=== PATIENT | male | born 1970 | race Caucasian/White ===

== ENCOUNTER 2023-07-22 05:47 | Emergency (ER) | payer SELFPAY ==
[2023-07-22 05:49] VITALS: BP 152/94
--- NOTE | 2023-07-22 06:15 | ED.GENMED ---
History of Present Illness
General
Chief Complaint: Back Pain
Time Seen by Provider: 07/22/23 06:07
Travel History
Have you had any contact with someone who has COVID-19?: No
Do you have any symptoms of coronavirus? Fever > 100 degrees, chills, cough, shortness of breath, sore throat, loss of taste or smell, muscle aches, or headache?: No
History of Present Illness
History of Present Illness:
HPI: Patient presents with back pain. This started after he strained his back moving large appliances at work 3 days ago. He went to [facility] at that time. He states they placed him on Flexeril and lidocaine however insurance would not
cover these medications. He could barely get out of bed today. He called a neighbor to help and then he drove himself here. He has no lower extremity neurologic dysfunction. He has no bowel or bladder incontinence or retention.
EXAM:
GENERAL: Well appearing but appears in moderate distress
HEENT: Moist oral mucosa
BACK: There is no midline T or L-spine tenderness, there is marked tenderness along the left paraspinal lower thoracic/upper lumbar paraspinal musculature
ABDOMEN: Soft with no peritoneal signs, no tenderness
NEUROLOGIC: Excellent strength all extremities, no coordination deficits
PSYCHIATRIC: Appropriate mental status, normal insight and judgement
EXTREMITIES: Nontender, no edema, moves all extremities equally
SKIN: No rash, no lesions
TIME OF INITIAL ENCOUNTER: 6:20 AM
NUMBER AND COMPLEXITY OF PROBLEMS ADDRESSED AT THE ENCOUNTER
� Chronic conditions affecting care: Chronic back pain and neck pain, history of alcohol abuse
� Acute Exacerbation and/or Progression of Chronic Illness: This is an acute exacerbation of a chronic problem
� Differential Diagnosis includes: Muscle strain, no clinical evidence/suspicion for fracture or cauda equina syndrome
AMOUNT AND/OR COMPLEXITY OF DATA TO BE REVIEWED AND ANALYZED
� I performed an independent evaluation of and my interpretation is:
EKG:
CT:
X-rays:
Laboratory Studies:
Other:
� Review of other/old records: I reviewed MRI report from 2017 that showed a small left paracentral protrusion at T12/L1 along with mild to moderate right-sided foraminal stenosis at L4-5
� Clinical information was obtained by an independent historian: None needed
� Prescriptions/Medications Considered but not given:
� Further testing considered but not performed: Considered imaging however the patient has no back pain red flags to warrant emergent imaging at this time
RISK OF COMPLICATIONS AND/OR MORBIDITY OR MORTALITY OF PATIENT MANAGEMENT
� Social determinants of health affecting care: Lives at home
� Discussion with other providers:
� Escalation of care including admission/observation vs risk of discharge considered: The patient has no back pain 'red flags'. He appears rather uncomfortable�will give IM Toradol and start steroids. Also plan very short
course of narcotic analgesia he is to follow-up with PMD. On reassessment at 7 AM, the patient still room to be in pain however he has an unchanged neurologic examination. Will give very short course of narcotic analgesia and steroids.
Past History
Past History
ED Past Medical History: HTN and Other (RA, alcoholism, Degenerative disc disease, Cellulits, )
ED Past Surgical History: Other (Patient had surgery on his back, early April 15)
Social History
Tobacco: Non-smoker
Alcohol: Chronic alcoholic
Drug: None
Personal: Single
Living: with family
Employment: Not employed
Family History
Family History: Other (Arthritis)
Phy Exam
Physical Exam
Physical Exam:
See HPI
Course
Orders/Labs/Results
Orders:
Orders
07/22/23 06:23
Ketorolac [Toradol] 30 mg IM NOW STA
Prednisone [Deltasone] 50 mg PO NOW STA
Vital Signs
Initial and Last Documented VS:
Initial Vital Signs
Temp Pulse Resp BP Pulse Ox
97.8 F 83 18 152/94 98
07/22/23 05:49 07/22/23 05:49 07/22/23 05:49 07/22/23 05:49 07/22/23 05:49
Last Documented Vital Signs
Temp Pulse Resp BP Pulse Ox
97.8 F 83 18 135/92 98
07/22/23 05:49 07/22/23 05:49 07/22/23 05:49 07/22/23 06:16 07/22/23 05:49
*Critical Care Note
Total Time (30-74mins, 75-104mins- exclusive of procedures): Not Applicable
ED Attending Note
-
Portions of this chart may have been created with voice recognition software.� Occasional wrong word or��sound alike� substitutions may have occurred due to the inherent limitations of voice recognition software.
Discharge Plan
Departure
Patient Disposition: Home (Routine Discharge)
Date of Disposition: 07/22/23
Time of Disposition: 07:03
Patient with high blood pressure during this ER visit?: Yes
Discharge Problem:
Back pain
Instructions: Low Back Pain (DC), BLOOD PRESSURE
Prescriptions:
New
prednisone 50 mg tablet
50 mg PO DAILY Qty: 4 0RF
oxycodone-acetaminophen [Percocet] 5-325 mg tablet
1 - 2 tab PO Q6HPRN PRN (Reason: pain) Qty: 14 0RF
No Action
ibuprofen 800 mg Tablet
800 mg PO Q8HPRN PRN (Reason: mod pain)
prednisone 5 mg Tablet
5 mg PO DAILY
therapeutic multivitamin Tablet
1 tab PO DAILY
methotrexate sodium 2.5 mg Tablet
25 mg PO TH
Hold Instructions: Resume on 11/18/22. Resume only after discussing with your piano stringer
folic acid 1 mg Tablet
1 mg PO DAILY
amoxicillin-pot clavulanate 875-125 mg Tablet
1 tab PO Q12 Qty: 14 0RF
docusate sodium 100 mg Capsule
100 mg PO BID Qty: 30 0RF
polyethylene glycol 3350 [HealthyLax] 17 gram Powder In Packet
17 g PO DAILY Qty: 100 0RF
pantoprazole 40 mg Tablet,Delayed Release (Dr/Ec)
40 mg PO DAILY Qty: 30 0RF
sennosides [Senna Laxative] 8.6 mg Tablet
8.6 mg PO BID Qty: 30 0RF
oxycodone 5 mg tablet
5 mg PO Q8H PRN (Reason: severe pain) Qty: 4 0RF
Referrals:
Artur Newton MD [Family Provider] -
Activity Restrictions/Additional Instructions:
Follow-up with your primary care doctor. Return here if worse. You could also try deel-vun-kohyujp lidocaine patches. If you take Percocet for pain, I recommend you try something like MiraLAX to help manage constipation. Next dose of steroids
tomorrow morning.
Interventions
Interventions:
*Risk Screen - Suicide Last Done: 07/22/23 05:49
*General Assessment Last Done: 07/22/23 05:49
*Neglect/Abuse Screening Last Done: 07/22/23 05:49
ED- Fall Risk Assessment Last Done: 07/22/23 06:26
*ED COVID-19 Vaccine History Last Done: 07/22/23 06:25
ED-Musculoskeletal Assessment Last Done: 07/22/23 06:26
Discharge Date and Time
Print Language: UZBEK
[2023-07-22 06:16] VITALS: BP 135/92
[2023-07-22 06:24] VITALS: BMI 27.8
[2023-07-22] MEDS: DELTASONE 50 MG PO (06:33)
[2023-07-22] MEDS: TORADOL 30 MG IM (06:33)
--- NOTE | 2023-07-22 07:59 | EDRN ---
Reviewed discharge instructions with patient. Verbalized understanding. Ambulated with steady gait to the lobby.
[2023-07-22 08:00] VITALS: BP 142/94
== END 2023-07-22 08:01 | disposition home or self-care (01) ==
LOC: EMR 05:47
PROVIDERS: EMERGENCY PHYSICIAN Emergency Medicine; FAMILY PHYSICIAN Family Medicine
DX: M54.9 Dorsalgia, unspecified (principal); X50.0XXA Overexertion from strenuous movement or load, initial encounter; Y93.89 Activity, other specified; Y92.89 Other specified places as the place of occurrence of the external cause; Y99.0 Civilian activity done for income or pay; I10 Essential (primary) hypertension; M06.9 Rheumatoid arthritis, unspecified; M51.35 Other intervertebral disc degeneration, thoracolumbar region; F10.21 Alcohol dependence, in remission
CPT/HCPCS: 99284; 96372

== ENCOUNTER → 2023-07-22 16:03 | Outpatient (REF) | payer OTHER, SELFPAY | LOC: RAD 16:03 | PROVIDERS: ATTENDING PHYSICIAN Nurse Practitioner Family | DX: M54.6 Pain in thoracic spine (principal); G89.29 Other chronic pain; M54.50 Low back pain, unspecified; M54.16 Radiculopathy, lumbar region | CPT/HCPCS: 72072; 72110 ==

== ENCOUNTER → 2023-08-02 13:08 | Outpatient (REF) | payer OTHER, SELFPAY | LOC: HWRAD 13:08 | PROVIDERS: ATTENDING PHYSICIAN Nurse Practitioner Family | DX: K40.90 Unilateral inguinal hernia, without obstruction or gangrene, not specified as recurrent (principal) | CPT/HCPCS: 74177; Q9967 ==

== ENCOUNTER 2023-08-25 05:14 | Emergency (ER) | payer OTHER, SELFPAY ==
[2023-08-25 05:22] VITALS: BP 162/106
[2023-08-25 05:33] VITALS: BMI 27.4
[2023-08-25 05:51] LABS: % Basophils 0.6 % (0-2); % Eosinophils 2.1 % (0-6); % Immature Granulocytes 0.1 % (0-0.5); % Lymphocytes 37.4 % (20.5-51.1); % Monocytes 6.8 % (1.7-9.3); Absolute Eosinophils 0.1 10^3/uL (0-0.7); Absolute Lymphocytes 2.5 10^3/uL (1.2-3.4); Absolute Monocytes 0.5 10^3/uL (0.1-0.6); Absolute Neutrophils 3.6 10^3/uL (1.4-6.5); Hematocrit 41.9 % (39.0-52.0); Hemoglobin 15.2 g/dL (13.0-18.0); Mean Corp Hgb Conc. 36.3 g/dL (33.0-37.0); Mean Corpuscular Hgb 32.1 pg (27.0-31.0); Mean Corpuscular Volume 88.4 fL (80.0-94.0); Mean Platelet Volume 9.3 fL (7.4-10.4); Nucleated Red Blood Cells % 0 % (-); Platelet Count 312 10^3/uL (130-400); Red Blood Cell Count 4.74 10^6/uL (4.70-6.10); Red Cell Dist. Width 11.4 % (11.5-14.5); White Blood Cell Count 6.8 10^3/uL (4.8-10.8)
[2023-08-25 06:08] LABS: ALT (SGPT) 34 U/L (0-50); AST (SGOT) 31 U/L (17-59); Albumin 4.8 g/dl (3.5-5.0); Alkaline Phosphatase 58 U/L (38-126); Blood Urea Nitrogen 15 mg/dl (9-20); Calcium 9.6 mg/dl (8.4-10.2); Carbon Dioxide 24 mmol/L (22-30); Chloride 103 mmol/L (98-107); Estimated Creatinine Clearance 112 ml/min; Glucose 163 mg/dl (70-99); Potassium 4.3 mmol/L (3.5-5.1); Sodium 139 mmol/L (135-145); Total Bilirubin 0.8 mg/dl (0.2-1.3); Total Protein 6.9 g/dl (6.3-8.2); eGFR > 60.00
--- NOTE | 2023-08-25 06:58 | ED.GENMED ---
History of Present Illness
General
Chief Complaint: Back Pain
Source: patient
Time Seen by Provider: 08/25/23 06:45
History of Present Illness
History of Present Illness:
52-year-old male presents to the emergency room complaining of low back pain. Patient has been having back pain issues intermittently for years. About a month ago he states he felt something go in his back while moving an oven at work. He has
been seeing his primary care provider for this and was actually referred to orthopedics/spine surgery. He actually had an appointment today but states he could not go to that appointment because his pain was too severe. The pain was preventing him
from getting up and going to the bathroom. No fever or chills. Pain exists in the back. No lower extremity weakness. Patient had an MRI performed yesterday at [facility] here at [place].
Past History
Past History
ED Past Medical History: HTN and Other (RA, alcoholism, Degenerative disc disease, Cellulits, )
ED Past Surgical History: Other (Patient had surgery on his back, early April 15)
Social History
Tobacco: Non-smoker
Alcohol: Chronic alcoholic
Drug: None
Personal: Single
Living: with family
Employment: Not employed
Family History
Family History: Other (Arthritis)
Phy Exam
Physical Exam
Physical Exam:
General: Awake, Alert, Oriented X3. Appears uncomfortable
Vitals: unremarkable
Head: Atraumatic
Eyes: Pupils equal, EOMI
Throat: Airway intact, no exudates
Neck: Trachea midline
Lungs: Clear and equal b/l
Heart: Regular rate, no murmurs
Abd: Soft, Nontender, No pulsatile mass
Back: Tenderness palpation left paraspinal musculature
Neuro: No focal weakness, sensation intact
Skin: Warm, dry, no rash
Extremities: pulses equal b/l, no edema
Course
Orders/Labs/Results
Orders:
Orders
08/25/23 05:34
Complete Blood Count/With Diff Urgent
Comprehensive Metabolic Panel Urgent
08/25/23 06:56
Ketorolac [Toradol] 30 mg IV NOW STA
08/25/23 06:58
Diazepam [Valium] 5 mg PO NOW STA
08/25/23 07:17
Urinalysis Reflex To Culture Urgent
Date Specimen was Collected: 08/25/23
Time Specimen was Collected: 07:16
Abnormal Lab Results
08/25/23
05:34
MCH 32.1 H pg
(27.0-31.0)
RDW 11.4 L %
(11.5-14.5)
Glucose 163 H mg/dl
(70-99)
08/25/23 05:34
08/25/23 05:34
Vital Signs
Initial and Last Documented VS:
Initial Vital Signs
Temp Pulse Resp BP Pulse Ox
98.1 F 94 20 162/106 99
08/25/23 05:22 08/25/23 05:22 08/25/23 05:22 08/25/23 05:22 08/25/23 05:22
Last Documented Vital Signs
Temp Pulse Resp BP Pulse Ox
98.1 F 89 16 141/94 98
08/25/23 05:22 08/25/23 08:18 08/25/23 08:18 08/25/23 08:18 08/25/23 08:18
MDM/Problems Addressed
Differential Diagnosis Includes:
low back strain, kidney stone, radiculopathy
MDM/Problems Addressed:
Pt presents with exacerbation of low back pain. No fever. No ivda. Pt had a MRI yesterday which I was able to obtain the report for.....there disc disease and herniation of L1 to the left with foramen narrowing. Will discharge with prescription
for steroids, few Valium and pt will go to ortho. appt.
*Critical Care Note
Total Time (30-74mins, 75-104mins- exclusive of procedures): Not Applicable
ED Attending Note
-
Portions of this chart may have been created with voice recognition software.� Occasional wrong word or��sound alike� substitutions may have occurred due to the inherent limitations of voice recognition software.
Discharge Plan
Departure
Patient Disposition: Home (Routine Discharge)
Date of Disposition: 08/25/23
Time of Disposition: 08:17
Patient with high blood pressure during this ER visit?: Yes
Condition: Good
Discharge Problem:
Back pain
Instructions: Low Back Pain (DC)
Prescriptions:
New
methylprednisolone [Medrol (Lamine)] 4 mg tablets,dose pack
See Rx Instructions .ROUTE .COMPLEX Qty: 21 0RF
Rx Instructions:
orally per package directions
diazepam [Valium] 5 mg tablet
5 mg PO TID PRN (Reason: muscle spasm) Qty: 12 0RF
No Action
ibuprofen 800 mg Tablet
800 mg PO Q8HPRN PRN (Reason: mod pain)
prednisone 5 mg Tablet
5 mg PO DAILY
therapeutic multivitamin Tablet
1 tab PO DAILY
methotrexate sodium 2.5 mg Tablet
25 mg PO TH
Hold Instructions: Resume on 11/18/22. Resume only after discussing with your boulevard glassware replacer
folic acid 1 mg Tablet
1 mg PO DAILY
amoxicillin-pot clavulanate 875-125 mg Tablet
1 tab PO Q12 Qty: 14 0RF
docusate sodium 100 mg Capsule
100 mg PO BID Qty: 30 0RF
polyethylene glycol 3350 [HealthyLax] 17 gram Powder In Packet
17 g PO DAILY Qty: 100 0RF
pantoprazole 40 mg Tablet,Delayed Release (Dr/Ec)
40 mg PO DAILY Qty: 30 0RF
sennosides [Senna Laxative] 8.6 mg Tablet
8.6 mg PO BID Qty: 30 0RF
oxycodone 5 mg tablet
5 mg PO Q8H PRN (Reason: severe pain) Qty: 4 0RF
prednisone 50 mg tablet
50 mg PO DAILY Qty: 4 0RF
oxycodone-acetaminophen [Percocet] 5-325 mg tablet
1 - 2 tab PO Q6HPRN PRN (Reason: pain) Qty: 14 0RF
Referrals:
Artur Newton MD [Family Provider] -
Activity Restrictions/Additional Instructions:
Please follow up with ortho as scheduled.
Interventions
Interventions:
*Risk Screen - Suicide Last Done: 08/25/23 05:22
*General Assessment Last Done: 08/25/23 05:22
*Neglect/Abuse Screening Last Done: 08/25/23 05:22
ED- Fall Risk Assessment Last Done: 08/25/23 05:22
*ED COVID-19 Vaccine History Last Done: 08/25/23 05:22
*Nursing Disposition Last Done: 08/25/23 08:27
UU-Ltvkhv-Ckjbyumuwl Assessment Last Done: 08/25/23 05:46
ED-Musculoskeletal Assessment Last Done: 08/25/23 05:46
Discharge Date and Time
Discharge Date/Time: 08/25/23 08:28
Print Language: CROATIAN
[2023-08-25] MEDS: VALIUM 5 MG PO (07:14)
[2023-08-25] MEDS: TORADOL 30 MG IV (07:14)
[2023-08-25 08:02] LABS: Urine Albumin Negative (Neg - Trace); Urine Bilirubin Negative (Negative); Urine Character Clear (Clear); Urine Color Yellow; Urine Glucose Negative (Negative); Urine Ketone Negative (Negative); Urine Leukocyte Negative (Negative); Urine Nitrite Negative (Negative); Urine Occult Blood Negative (Negative); Urine Specific Gravity 1.015 (<1.030); Urine Urobilinogen Negative (Neg - 1+)
[2023-08-25 08:18] VITALS: BP 141/94
== END 2023-08-25 08:28 | disposition home or self-care (01) ==
LOC: EMR 05:14
PROVIDERS: Emergency Medicine; EMERGENCY PHYSICIAN Emergency Medicine; FAMILY PHYSICIAN Family Medicine
DX: M54.50 Low back pain, unspecified (principal); I10 Essential (primary) hypertension
CPT/HCPCS: 99284; 96374; 80053; 81003; 85025

== ENCOUNTER 2023-08-27 02:45 | Emergency (ER) | payer OTHER, SELFPAY ==
[2023-08-27 02:48] VITALS: BP 166/105
[2023-08-27 03:00] VITALS: BP 146/90
[2023-08-27 03:12] VITALS: BMI 27.6
[2023-08-27] MEDS: TORADOL 30 MG IV (03:14)
[2023-08-27] MEDS: NSS 1000 IV (03:15)
[2023-08-27 03:46] LABS: Alcohol 96 mg/dl; Blood Urea Nitrogen 17 mg/dl (9-20); Calcium 9.8 mg/dl (8.4-10.2); Carbon Dioxide 23 mmol/L (22-30); Chloride 106 mmol/L (98-107); Estimated Creatinine Clearance 100 ml/min; Glucose 154 mg/dl (70-99); Potassium 4.8 mmol/L (3.5-5.1); Sodium 142 mmol/L (135-145); eGFR > 60.00
[2023-08-27 04:08] VITALS: BP 158/92
--- NOTE | 2023-08-27 05:58 | ED.GENMED ---
History of Present Illness
General
Chief Complaint: Abdominal Pain
Source: patient, previous radiology exam (CT abdomen pelvis August 01 showing bilateral nonobstructive kidney stones. Bilateral inguinal hernias containing fat. Lumbar DJD.) and previous hospital records (Several ED visits for similar complaint most
recently July 22, 2023 and just 2 days ago August 24 with complaints of persistent low back pain.)
Exam Limitations: none
Time Seen by Provider: 08/27/23 03:01
Nursing documentation reviewed up to this point in time: agreed with
History of Present Illness
History of Present Illness:
This is a 52-year-old gentleman who has history of chronic low back pain, lumbar DJD who complains of persistent low back pain after lifting injury early July. Evaluated in this ED July 21 and then again 2 days ago August 24 with complaints of
persistent low back pain radiating to his left lower quadrant, left groin region. He has been following with his primary care physician and underwent MRI of the lumbar spine 3 days ago showing disc disease and herniation of L1 to the left with
foramen narrowing. He had an appointment with orthospine on the but missed that appointment and instead came to the ED for evaluation of his low back pain. Unremarkable laboratory studies as well as urinalysis, was given IV Toradol and Valium
p.o. and was discharged to home with patient states he woke up with severe prescription for Medrol Dosepak as well as a few Valium.
Left lower quadrant pain, left groin pain, concerned for exacerbation of his hernia, he also complains of significant ongoing low back pain.
He has rescheduled his appointment with orthospine for this August 31.
He denies fall, no difficulty moving his bowels or bladder. No fever nor chills. No history of IV drug use.
Records reveal outpatient CT of the abdomen pelvis August 01. Performed due to complaints of left lower quadrant pain, left groin pain. CAT scan shows bilateral nonobstructive kidney stones, bilateral inguinal hernias containing fat.
Patient admits that pain is worse with movement but he is unsure if pain feels similar to his ongoing low back pain. He took a Percocet prior to arrival without relief.
He has driven himself to the ED.
Upon review of PDMP. Patient has been prescribed multiple narcotic medications from several different providers over the past month. He has been prescribed several small prescription for tramadol by [facility] orthopedist Lesly Jeffries MD.
Past History
Past History
ED Past Medical History: HTN and Other (RA, alcoholism, Degenerative disc disease, Cellulits, chronic low back pain/lumbar DJD)
ED Past Surgical History: Other (Patient had surgery on his back, early April 2018)
Social History
Tobacco: Non-smoker
Alcohol: Chronic alcoholic
Drug: None
Personal: Single
Living: with family
Employment: Employed
Family History
Family History: Other (Arthritis)
Phy Exam
Physical Exam
Physical Exam:
GENERAL: 52-year-old gentleman appears his stated age, moderately anxious, moaning in pain, mildly restless. Moderately hypertensive, mildly tachycardic. Afebrile.
EYE: pupils equal and reactive. anicteric
NECK: Supple, nontender, no meningismus, no significant adenopathy.
ENT: posterior pharynx is clear, oral mucosa is moist. No rhinorrhea.
CARDIAC: Regular rhythm, tachycardic at 120. no murmur.
LUNGS: Clear breath sounds bilaterally, no acute respiratory distress, no wheezes/rales/rhonchi
ABDOMEN: Soft, nondistended, mild tenderness palpation left inguinal region without palpable mass, no rash, no r/g, no cvat. normoactive BS.
BACK: Mild paralumbar tenderness to palpation. No midline bony tenderness.
NEUROLOGICAL: Alert and oriented x3, no focal neuro deficits. Gait is steady.
SKIN: Warm and dry, normal color, skin intact. No rash.
MUSCULOSKELETAL: No C/C/E. peripheral pulses are full and equal b/l. No palpable tenderness.
PSYCH: Mildly anxious. Intermittently demanding.
Course
Orders/Labs/Results
Orders:
Orders
08/27/23 03:11
0.9% Sodium Chloride 1000 ml [Nss] 1,000 ml IV BOLUS
Ketorolac [Toradol] 30 mg .ROUTE .STK-MED ONE
08/27/23 03:12
Ketorolac [Toradol] 30 mg IV NOW STA
08/27/23 03:13
CT Abd/pel Without Iv Or Oral Urgent
Comment:
Reason For Exam: severe LLQ to L groin pain
08/27/23 03:20
Alcohol Urgent
Basic Metabolic Panel Urgent
08/27/23 04:45
Lidocaine 2% Mpf [Xylocaine Mpf 2%] 145 mg 0.9% Sodium Chloride 100 ml [Nss] 100 ml IV NOW
Abnormal Lab Results
08/27/23
03:20
Glucose 154 H mg/dl
(70-99)
08/27/23 03:20
Vital Signs
Initial and Last Documented VS:
Initial Vital Signs
Temp Pulse Resp BP Pulse Ox
98 F 139 28 166/105 97
08/27/23 02:48 08/27/23 02:48 08/27/23 02:48 08/27/23 02:48 08/27/23 02:48
Last Documented Vital Signs
Temp Pulse Resp BP Pulse Ox
98 F 122 14 158/92 94
08/27/23 02:48 08/27/23 03:15 08/27/23 03:15 08/27/23 04:08 08/27/23 04:15
MDM/Problems Addressed
Differential Diagnosis Includes:
Concern for acute on chronic low back pain with sciatica to the left as cause for his left lower quadrant and left groin pain. Other consideration is renal colic/left ureteric stone. There is no palpable mass, no palpable hernia.
Will repeat BMP, urinalysis. Unremarkable laboratory studies just 2 days ago.
Will check CT abdomen pelvis to assess for potential ureteric stone, occult hernia.
Will medicate for pain with IV Toradol.
No red flags in history or exam. No saddle anesthesia, no neurologic deficits, no difficulty moving bowels or bladder.
No recent surgical procedures, no history of IV drug use, no history of diabetes thus no risk factors for infectious process/epidural abscess and reassuring that patient underwent MRI just 3 days ago.
Chronic conditions affecting care: Other (Chronic low back pain/lumbar DJD)
*Radiology
Radiology exam reviewed: radiology read reviewed
*Pulse Oximetry
Patient hypoxic: no
*Critical Care Note
Total Time (30-74mins, 75-104mins- exclusive of procedures): Not Applicable
comment:
08/27/2023 0615 AM
Update Note
Update Note:
08/27/2023 04:35 AM
CAT scan shows intrarenal stones but no evidence of ureteric stone nor hydronephrosis.
Mildly prominent fluid-filled loops of jejunum in the left mid abdomen which may represent a mild enteritis versus peristalsis artifact. There is no bowel obstruction. No acute abnormality.
Multilevel DJD in the lumbar spine and mild T12 wedge deformity.
I suspect patient's left groin pain, low back pain is ongoing issue related to his lumbar DJD for which he is already following with orthopedics.
Lengthy discussion with patient regarding our narcotic responsible policy and as such we will avoid further narcotics and will trial a dose of IV lidocaine.
If this is ineffective we could trial IV ketamine.
Chemistries are again unremarkable save for mildly elevated glucose of 154. Patient currently prescribed an oral steroid.
08/27/2023 05:01 AM
Prior to receiving IV lidocaine patient has become quite angry, argumentative, yelling obscenities and has decided to leave the ED.
He has pulled out his IV and has ambulated with a whittington steady unaided gait out of the exam room down the [place] to the waiting room.
I do not doubt that the patient is in pain but I have significant concern for an element of opioid seeking behavior.
ED Attending Note
-
Portions of this chart may have been created with voice recognition software.� Occasional wrong word or��sound alike� substitutions may have occurred due to the inherent limitations of voice recognition software.
Discharge Plan
Departure
Patient Disposition: Against Medical Advice
Condition: Good
Discharge Problem:
Acute exacerbation of chronic low back pain, opioid seeking behavior
Prescriptions:
No Action
ibuprofen 800 mg Tablet
800 mg PO Q8HPRN PRN (Reason: mod pain)
prednisone 5 mg Tablet
5 mg PO DAILY
therapeutic multivitamin Tablet
1 tab PO DAILY
methotrexate sodium 2.5 mg Tablet
25 mg PO TH
Hold Instructions: Resume on 11/18/22. Resume only after discussing with your leaf sticker
folic acid 1 mg Tablet
1 mg PO DAILY
amoxicillin-pot clavulanate 875-125 mg Tablet
1 tab PO Q12 Qty: 14 0RF
docusate sodium 100 mg Capsule
100 mg PO BID Qty: 30 0RF
polyethylene glycol 3350 [HealthyLax] 17 gram Powder In Packet
17 g PO DAILY Qty: 100 0RF
pantoprazole 40 mg Tablet,Delayed Release (Dr/Ec)
40 mg PO DAILY Qty: 30 0RF
sennosides [Senna Laxative] 8.6 mg Tablet
8.6 mg PO BID Qty: 30 0RF
oxycodone 5 mg tablet
5 mg PO Q8H PRN (Reason: severe pain) Qty: 4 0RF
prednisone 50 mg tablet
50 mg PO DAILY Qty: 4 0RF
oxycodone-acetaminophen [Percocet] 5-325 mg tablet
1 - 2 tab PO Q6HPRN PRN (Reason: pain) Qty: 14 0RF
methylprednisolone [Medrol (Lamine)] 4 mg tablets,dose pack
See Rx Instructions .ROUTE .COMPLEX Qty: 21 0RF
Rx Instructions:
orally per package directions
diazepam [Valium] 5 mg tablet
5 mg PO TID PRN (Reason: muscle spasm) Qty: 12 0RF
Referrals:
Artur Newton MD [Family Provider] -
Interventions
Interventions:
*Risk Screen - Suicide Last Done: 08/27/23 02:48
*General Assessment Last Done: 08/27/23 02:48
*Neglect/Abuse Screening Last Done: 08/27/23 02:48
ED- Fall Risk Assessment Last Done: 08/27/23 03:12
*Nursing Disposition Last Done: 08/27/23 05:05
KJ-Uioyrs-Vbxsbsyyfc Assessment Last Done: 08/27/23 03:12
Discharge Date and Time
Discharge Date/Time: 08/27/23 05:06
Print Language: ARABIC
== END 2023-08-27 05:06 | disposition left against medical advice (07) ==
LOC: EMR 02:45
PROVIDERS: EMERGENCY PHYSICIAN Emergency Medicine; FAMILY PHYSICIAN Family Medicine
DX: M54.50 Low back pain, unspecified (principal); R10.32 Left lower quadrant pain; N20.0 Calculus of kidney; Z76.5 Malingerer [conscious simulation]; Z53.29 Procedure and treatment not carried out because of patient's decision for other reasons; K40.20 Bilateral inguinal hernia, without obstruction or gangrene, not specified as recurrent; M47.816 Spondylosis without myelopathy or radiculopathy, lumbar region; G89.29 Other chronic pain; I10 Essential (primary) hypertension; M06.9 Rheumatoid arthritis, unspecified; M51.36 Other intervertebral disc degeneration, lumbar region; F10.20 Alcohol dependence, uncomplicated
CPT/HCPCS: 99284; 96374; 96361; 74176; 80048; 82077

== ENCOUNTER 2023-09-19 22:06 | Inpatient (IN) | payer OTHER, SELFPAY ==
[2023-09-19] VITALS (13 sets, daily range): BP systolic 126–168; BP diastolic 91–116; BMI 26.0; BMI 25.6
--- NOTE | 2023-09-19 16:54 | EDRN ---
Dr. Francois currently at the pts bedside speaking with the pt
[2023-09-19 17:19] LABS: ALT (SGPT) 24 U/L (0-50); AST (SGOT) 30 U/L (17-59); Albumin 4.5 g/dl (3.5-5.0); Alcohol 137 mg/dl; Alkaline Phosphatase 71 U/L (38-126); Blood Urea Nitrogen 11 mg/dl (9-20); Calcium 9.5 mg/dl (8.4-10.2); Carbon Dioxide 24 mmol/L (22-30); Chloride 97 mmol/L (98-107); Estimated Creatinine Clearance 67 ml/min; Glucose 98 mg/dl (70-99); Potassium 4.2 mmol/L (3.5-5.1); Sodium 133 mmol/L (135-145); Total Bilirubin 1.3 mg/dl (0.2-1.3); Total Protein 6.5 g/dl (6.3-8.2); eGFR > 60.00
[2023-09-19 17:22] LABS: Amphetamines Negative (Negative); Barbiturates Negative (Negative); Benzodiazepines Positive (Negative); Buprenorphine Negative (Negative); Cocaine Negative (Negative); Marijuana Positive (Negative); Methadone Negative (Negative); Methamphetamines Negative (Negative); Opiates Negative (Negative); Phencyclidine Negative (Negative); Tricyclic Antidepressants Negative (Negative)
[2023-09-19 17:33] LABS: Fentanyl, Urine Negative (Negative)
[2023-09-19 18:58] LABS: % Basophils 0.2 % (0-2); % Eosinophils 0.1 % (0-6); % Immature Granulocytes 0.6 % (0-0.5); % Lymphocytes 20.6 % (20.5-51.1); % Monocytes 11.8 % (1.7-9.3); % Neutrophils 66.7 % (42.2-75.2); Absolute Immature Granulocytes 0.1 10^3/uL (0-0.05); Absolute Lymphocytes 1.8 10^3/uL (1.2-3.4); Absolute Neutrophils 5.7 10^3/uL (1.4-6.5); Hematocrit 43.7 % (39.0-52.0); Hemoglobin 16.8 g/dL (13.0-18.0); Mean Corp Hgb Conc. 38.4 g/dL (33.0-37.0); Mean Corpuscular Hgb 34.1 pg (27.0-31.0); Mean Corpuscular Volume 88.6 fL (80.0-94.0); Mean Platelet Volume 9.7 fL (7.4-10.4); Nucleated Red Blood Cells % 0 % (-); Platelet Count 277 10^3/uL (130-400); Red Blood Cell Count 4.93 10^6/uL (4.70-6.10); Red Cell Dist. Width 13.4 % (11.5-14.5); White Blood Cell Count 8.6 10^3/uL (4.8-10.8)
[2023-09-19] MEDS: ZOFRAN 4 MG IV (19:17)
--- NOTE | 2023-09-19 20:11 | ED.GENMED ---
History of Present Illness
General
Chief Complaint: Withdrawal Symptoms
Source: patient
Exam Limitations: none
Time Seen by Provider: 09/19/23 16:52
Nursing documentation reviewed up to this point in time: agreed with
History of Present Illness
History of Present Illness:
53-year-old male presents emergency department complaining of withdrawal from Percocet and Dilaudid. He states he has been drinking for the past several weeks. He drank a sixpack and another large beer today.
Past History
Past History
ED Past Medical History: HTN and Other (RA, alcoholism, Degenerative disc disease, Cellulits, chronic low back pain/lumbar DJD)
ED Past Surgical History: Other (Patient had surgery on his back, early April 2018)
Social History
Tobacco: Non-smoker
Alcohol: Chronic alcoholic
Drug: None
Personal: Single
Living: with family
Employment: Employed
Family History
Family History: Other (Arthritis)
Review of Systems
Review of Systems
Allergies reviewed?: Yes
All Other Systems: Not applicable
Constitutional: Reports no symptoms
EENT: Reports no symptoms
Respiratory: Reports no symptoms
Cardiac: Reports no symptoms
ABD/GI: Reports vomiting
: Reports no symptoms
Musculoskeletal: Reports no symptoms
Skin: Reports no symptoms
Neurological: Reports no symptoms
Endocrine: Reports no symptoms
Hematologic/Lymphatic: Reports no symptoms
Psychiatric: Reports no symptoms
Phy Exam
Physical Exam
Physical Exam:
Physical Exam
General: no apparent distress, not acutely ill
Neck: supple. no meningeal signs. normal posterior pharynx
Heart: s1/s2 regular rate and rhythm, no murmur. equal radial
pulses.
HEENT: Pupils equal round reactive to light, EOMI
Lungs: no acute respiratory distress. clear bilaterally
Abdomen: normal bowel sounds. not tender. no CVAT
Neuro: alert and oriented. no focal neurological deficits cranial nerves II through XII intact
Skin: no rash
Psychiatric: well kept. interactive and cooperative
Extremities: no edema. no calf tenderness. negative homans. good distal pulses
Course
Orders/Labs/Results
Orders:
Orders
09/19/23 16:38
Alcohol Urgent
Complete Blood Count/With Diff Urgent
Comprehensive Metabolic Panel Urgent
Fentanyl, Urine Urgent
Urine Drug Abuse Screen Urgent
Date Specimen was Collected: 09/19/23
Time Specimen was Collected: 16:00
09/19/23 19:06
Ondansetron Injectable [Zofran] 4 mg IV NOW STA
09/19/23 20:18
Lorazepam [Ativan] 2 mg IV NOW STA
Abnormal Lab Results
09/19/23
16:38
MCH 34.1 H pg
(27.0-31.0)
MCHC 38.4 H g/dL
(33.0-37.0)
Abs Immat Gran (auto) 0.1 H 10^3/uL
(0-0.05)
Absolute Monos (auto) 1.0 H 10^3/uL
(0.1-0.6)
Immature Gran % 0.6 H %
(0-0.5)
Monocytes % 11.8 H %
(1.7-9.3)
Sodium 133 L mmol/L
(135-145)
Chloride 97 L mmol/L
(98-107)
U Benzodiazepines Scrn Positive H
(Negative)
U Marijuana (THC) Screen Positive H
(Negative)
09/19/23 16:38
09/19/23 16:38
Vital Signs
Initial and Last Documented VS:
Initial Vital Signs
Temp Pulse Resp BP Pulse Ox
98.1 F 127 18 168/116 99
09/19/23 15:36 09/19/23 15:36 09/19/23 15:36 09/19/23 15:36 09/19/23 15:36
Last Documented Vital Signs
Temp Pulse Resp BP Pulse Ox
97.6 F 110 20 126/92 97
09/19/23 18:28 09/19/23 19:45 09/19/23 18:28 09/19/23 19:22 09/19/23 19:45
MDM/Problems Addressed
Differential Diagnosis Includes:
Alcohol withdrawal, opiate withdrawal
MDM/Problems Addressed:
53-year-old male with alcohol abuse, possible opiate withdrawal versus kratom abuse
*Pulse Oximetry
Patient hypoxic: no
*EKG
Interpreted by ED Provider?: NA
*Physiotherapist'S Assistant Interpretation
Rate: Physiotherapist'S Assistant- N/A
*Critical Care Note
Total Time (30-74mins, 75-104mins- exclusive of procedures): Not Applicable
Patient Management
Social determinants of health affecting care: Living situation
ED Attending Note
-
Portions of this chart may have been created with voice recognition software.� Occasional wrong word or��sound alike� substitutions may have occurred due to the inherent limitations of voice recognition software.
Discharge Plan
Departure
Patient Disposition: Admit
Date of Disposition: 09/19/23
Time of Disposition: 20:19
Admit to: IMU
Presentation/result/management discussed w/ accepting MD/DO: Hospitalist
Patient with high blood pressure during this ER visit?: Yes
Condition: Fair
Discharge Problem:
Alcohol withdrawal, Opiate abuse, episodic, Kratom abuse
Prescriptions:
No Action
ibuprofen 800 mg Tablet
800 mg PO Q8HPRN PRN (Reason: mod pain)
prednisone 5 mg Tablet
5 mg PO DAILY
therapeutic multivitamin Tablet
1 tab PO DAILY
methotrexate sodium 2.5 mg Tablet
25 mg PO TH
folic acid 1 mg Tablet
1 mg PO DAILY
docusate sodium 100 mg Capsule
100 mg PO BID Qty: 30 0RF
polyethylene glycol 3350 [HealthyLax] 17 gram Powder In Packet
17 g PO DAILY Qty: 100 0RF
pantoprazole 40 mg Tablet,Delayed Release (Dr/Ec)
40 mg PO DAILY Qty: 30 0RF
sennosides [Senna Laxative] 8.6 mg Tablet
8.6 mg PO BID Qty: 30 0RF
oxycodone 5 mg tablet
5 mg PO Q8H PRN (Reason: severe pain) Qty: 4 0RF
prednisone 50 mg tablet
50 mg PO DAILY Qty: 4 0RF
oxycodone-acetaminophen [Percocet] 5-325 mg tablet
1 - 2 tab PO Q6HPRN PRN (Reason: pain) Qty: 14 0RF
diazepam [Valium] 5 mg tablet
5 mg PO TID PRN (Reason: muscle spasm) Qty: 12 0RF
Referrals:
Miley Bray CRNP [Family Provider] -
Interventions
Interventions:
*Risk Screen - Suicide Last Done: 09/19/23 15:34
*General Assessment Last Done: 09/19/23 15:34
*Neglect/Abuse Screening Last Done: 09/19/23 15:34
ED- Fall Risk Assessment Last Done: 09/19/23 16:08
*ED COVID-19 Vaccine History Last Done: 09/19/23 15:34
ED- Neurological Assessment Last Done: 09/19/23 16:08
ED-Psychological Assessment Last Done: 09/19/23 16:08
Discharge Date and Time
Print Language: KHMER
[2023-09-19] MEDS: ATIVAN 2 MG IV (20:29)
--- NOTE | 2023-09-19 21:05 | W.PN.UPDATE ---
Update Note
Progress Note Update
This is an addendum to the H&P written by Michelle Nogueira on on 09/19/2023. Patient seen and examined independently with PA.
53-year-old male past medical history of alcohol use disorder, rheumatoid arthritis, chronic back pain from prior injuries, hypertension, left inguinal hernia presenting for alcohol withdrawal and opiate withdrawal. He was recently hospitalized at
[place] where he was given frequent doses of Dilaudid and subsequently ran out of Percocet. He also uses kratom. He has used Valium within the past 2 weeks. He has recently taken marijuana Gummies.
Back pain is surprisingly well-controlled at this time.
Presentation consistent with alcohol withdrawal with some component of opiate withdrawal. UDS positive for marijuana and benzodiazepines. IV fluids. Thiamine and folate. Alcohol withdrawal protocol. Opiate withdrawal protocol with plan to stop
chronic opiate use. May benefit from outpatient pain management. Continue Tylenol and ibuprofen although caution due to possible gastritis/GERD.
--- NOTE | 2023-09-19 21:07 | HPS.HSE ---
Family Physician
-
Family Physician: MANOHAR Padilla
Chief Complaint
-
Withdrawal
History of Present Illness
Patient is a 53 yo M with H degenerative disc disease, OA, RA, chronic back pain, alcohol abuse, and substance abuse (opioids, kratom) c/o withdrawal from oxycodone and Dilaudid. Pt states he was recently hospitalized at [facility] for back
pain during which time he received many doses of Dilaudid. Upon discharge last week he was prescribed 10-15 pills of oxycodone. He states last dose of oxycodone was taken about 5 days ago. He admits to consuming alcohol to buffer pain and consumed a
6-pack today prior to coming to the emergency department. He also admits to consuming microdoses of marijuana gummies. Pt admits to anorexia, nausea, vomiting, sweats, shaking, and anxiety. He denies fever, chest pain, palpitations, dyspnea, and
abdominal pain.
Medical History
Past Medical History
Past Medical History: Reports Other
Additional Past Medical History:
Arthritis
Chronic Back Pain
Substance Abuse
Alcohol Abuse
Past Surgical History: Reports Other
Additional Past Surgical History:
Right Hand Washout
Social History
Tobacco: Non-smoker
Alcohol: Chronic Alcoholic
Drug: Former User (Denies IV Drug Use)
Family History
Family History: Not pertinent
Allergies / Home Medications
Allergies reflects when Allergies were last updated in [facility].
Home Medications with original date entered in [facility]
Allergy/Medication List:
Allergies
Allergy/AdvReac Type Severity Reaction Status Date / Time
No Known Allergies Allergy Verified 09/19/23 15:36
Home Medications
folic acid 1 mg tablet 1 mg PO DAILY Supplement 11/06/22
ibuprofen 800 mg tablet 800 mg PO Q8HPRN PRN mod pain 11/06/22
methotrexate sodium 2.5 mg tablet 25 mg PO TH Rheumatoid arthritis 11/06/22
prednisone 5 mg tablet 5 mg PO DAILY Anti-Inflammatory 11/06/22
therapeutic multivitamin 1 tab PO DAILY Supplement 11/06/22
docusate sodium 100 mg capsule 100 mg PO BID #30 caps 11/09/22
oxycodone 5 mg tablet 5 mg PO Q8H PRN severe pain #4 tabs 11/09/22
pantoprazole 40 mg tablet,delayed release 40 mg PO DAILY #30 tabs 11/09/22
polyethylene glycol 3350 17 gram oral powder packet (HealthyLax) 17 g PO DAILY #100 ea 11/09/22
sennosides 8.6 mg tablet (Senna Laxative) 8.6 mg PO BID #30 tabs 11/09/22
oxycodone-acetaminophen 5 mg-325 mg tablet (Percocet) 1 - 2 tab PO Q6HPRN PRN pain #14 tabs 07/22/23
prednisone 50 mg tablet 50 mg PO DAILY #4 tabs 07/22/23
diazepam 5 mg tablet (Valium) 5 mg PO TID PRN muscle spasm #12 tabs 08/25/23
Review of Systems
-
A 12 point ROS was completed and negative except as noted: Yes
Constitutional: Reports Other (Sweats); Denies Fever
Respiratory: Denies Cough or Trouble Breathing
Cardiac: Denies Chest Pain or Palpitations
Abdomen/GI: Reports Nausea and Anorexia
Physical Exam
Vital Signs
Vital Signs
Temp Pulse Resp BP Pulse Ox
97.6 F 110 20 126/92 97
09/19/23 18:28 09/19/23 19:45 09/19/23 18:28 09/19/23 19:22 09/19/23 19:45
Physical Exam
General: Comfortable and Conversant
HEENT: Anicteric and Moist mucous membranes
Respiratory: Clear and Non Labored Respirations
Cardiac: S1/S2, Regular Rhythm and Tachycardia
GI: Soft and Non Tender
Rectal: Deferred by Provider
Genito-urinary: Clear Urine
Musculoskeletal: No Clubbing, No Cyanosis and No Edema
Skin: Warm and Dry
Neuro: Awake, Alert, Oriented and Nonfocal/grossly intact
Psych: Calm
Laboratory Results
-
09/19/23 16:38
09/19/23 16:38
Laboratory Results
Total Bilirubin 1.3 mg/dl (0.2-1.3) 09/19/23 16:38
AST 30 U/L (17-59) 09/19/23 16:38
ALT 24 U/L (0-50) 09/19/23 16:38
Alkaline Phosphatase 71 U/L (38-126) 09/19/23 16:38
Data Reviewed
-
Lab Data: Labs Reviewed by me
Impression/Plan
-
Alcohol Withdrawal / Opioid Withdrawal
-Continue lorazepam for alcohol withdrawal
-Continue buprenorphine for opioid withdrawal
-Continue thiamine and folic acid
Chronic Back Pain
-Avoid further opioids
-Continue Tylenol and Ibuprofen
-Patient would likely benefit from outpatient management evaluation
DVT proph: Lovenox
Code Status:Full Code
[2023-09-19] MEDS: ATIVAN 1 MG PO (23:07)
[2023-09-19] MEDS: NSS 1000 IV (23:08)
--- NOTE | 2023-09-19 23:20 | PTCARENOTE ---
Received pt from the ED via stretcher, pt with steady gait into the room. AAOx3, pleasant and thorough with recollection of recent health hx and events. Pt reports 07/24 b/l groin pain, states he has known b/l inguinal hernias. Sinus tach on the
monitor. SpO2 97% on RA. Remainder of assessment as documented. MSAS of 5, PRN Ativan given as ordered, NSS initiated @ 100mL/hr, see MAR. Pt oriented to unit and call smalls. Updated on POC, pt without questions at this time.
[2023-09-20] VITALS (11 sets, daily range): BP systolic 124–161; BP diastolic 65–101; BMI 25.6
[2023-09-20] MEDS: ATIVAN 1 MG PO ×4 (01:17→14:31)
[2023-09-20 05:10] LABS: ALT (SGPT) 32 U/L (0-50); AST (SGOT) 59 U/L (17-59); Albumin 4.1 g/dl (3.5-5.0); Alkaline Phosphatase 74 U/L (38-126); Blood Urea Nitrogen 18 mg/dl (9-20); Carbon Dioxide 30 mmol/L (22-30); Chloride 99 mmol/L (98-107); Direct Bilirubin 0.2 mg/dl (0.0-0.4); Estimated Creatinine Clearance 66 ml/min; GGTP 248 U/L (15-73); Glucose 101 mg/dl (70-99); INR 1.15; Magnesium 1.7 mg/dl (1.6-2.3); PT 14.5 Sec (11.4-14.6); Potassium 4.4 mmol/L (3.5-5.1); Sodium 135 mmol/L (135-145); Total Bilirubin 1.4 mg/dl (0.2-1.3); eGFR 55.32
[2023-09-20] MEDS: SUBUTEX 4 MG SL (05:18)
[2023-09-20 05:22] LABS: Hematocrit 39.3 % (39.0-52.0); Hemoglobin 14.5 g/dL (13.0-18.0); Mean Corp Hgb Conc. 36.9 g/dL (33.0-37.0); Mean Corpuscular Hgb 32.9 pg (27.0-31.0); Mean Corpuscular Volume 89.1 fL (80.0-94.0); Mean Platelet Volume 9.5 fL (7.4-10.4); Platelet Count 280 10^3/uL (130-400); Red Blood Cell Count 4.41 10^6/uL (4.70-6.10); White Blood Cell Count 8.3 10^3/uL (4.8-10.8)
[2023-09-20] MEDS: THIAMINE INJECTION 200 MG IV ×2 (08:31→20:03)
[2023-09-20] MEDS: FOLVITE 1 MG PO (08:31)
[2023-09-20] MEDS: PROTONIX 40 MG PO (08:31)
[2023-09-20] MEDS: NSS 1000 IV (08:32)
--- NOTE | 2023-09-20 12:26 | PTCARENOTE ---
Patient AAOx3, MSAS currently 3 after ativan dose. Report given to 2N RN. To be transferred by wheelchair now. VSS. NSR on monitor.
--- NOTE | 2023-09-20 12:44 | PTCARENOTE ---
Received pt from IMU in wheelchair, pt ambulated with no assistance to the bed, VSS, MSAS, call smalls within reach, pt resting comfortably in bed at this time.
--- NOTE | 2023-09-20 13:26 | W.PN.HOSP.TC ---
Today's Communication/Plan
-
Downgrade to telemetry
Stop COWS protocol
Continue buprenorphine daily
Ativan and MSAS protocol to be continued.
Stop IV fluids.
Assessment / Plan
Assessment / Plan
Assessment-
52-year-old male with PMHx significant for chronic back pain, rheumatoid arthritis, degenerative disc disease and alcohol use disorder presented to the hospital with anorexia nausea vomiting sweats, shivering and anxiety.-Diagnosed with alcohol
withdrawal and opiate withdrawal upon admission.
Plan-
Alcohol withdrawal-
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
Drank 6 packs of beers about 48 hours prior to today.
Patient currently on MSAS protocol, most recent score-7,
Patient received about 3 mg of Ativan in total.
AO x 3 (person, time, place), still confused at baseline, physical examination-ataxia, tremors present.
B CARES consult placed. downgrade to telemetry
Opioid withdrawal-
PDMP verified, opioid withdrawal less likely as last dose of opioid was about 7 days ago.
Received 1 dose of Subutex in the AM today.
Stop patient from COWS protocol.
Chronic low back pain -
Patient has severe low back pain secondary to DDD.
Previously seen pain management physician in [place].
Epidural shots 4-5 years ago.
Optimal pain managemnt on outpatient basis to help attain remission and prevent relapse.
Rheumatoid Arthritis -
Diagnosis status unknown.
Hyponatremia upon admission, likely secondary to hypovolemia in the setting of alcohol intake
Resolved on 09/19
TRAN -
KDIGO stage 1,
Secondary to overhydration?
stop hydration
trend renal function
DVT prophylaxis -
On heparin
Code status -
Full code.
Anticipated Discharge: > 48 hours
Subjective/Interval History
-
Date of Service: September 20, 2023
Patient reports feeling better today, appetite improved was able to eat a large meal yesterday night after admission.
Abdominal pain discomfort, anxiety currently improved from yesterday.
Objective Data
-
Labs:
Laboratory Results
09/20/23
04:25
WBC 8.3
Hgb 14.5
Hct 39.3
Plt Count 280
PT 14.5
INR 1.15
Sodium 135
Potassium 4.4
Chloride 99
Carbon Dioxide 30
BUN 18
Creatinine 1.5 H
Glucose 101 H
Calcium 9.0
Total Bilirubin 1.4 H
AST 59
ALT 32
Alkaline Phosphatase 74
Vital Signs:
Vital Signs
Temp Pulse Resp BP Pulse Ox
97.6 F 90 18 150/101 97
09/20/23 12:48 09/20/23 12:48 09/20/23 12:48 09/20/23 12:48 09/20/23 12:48
I&O
09/19/23 09/20/23 09/21/23
06:59 06:59 06:59
Output Total 200 / 200
Balance -200 / -200
Review of Systems
-
History Source: Patient
Constitutional: Reports No Appetite (Improved)
EENT: Reports No Symptoms Reported
Respiratory: Reports No Symptoms
Cardiac: Reports Diaphoresis (Present before ER visit, resolved.)
Abdomen/GI: Reports Abdominal Pain (Improved - 04/23.) and Constipated; Denies Nausea or Vomiting
Genitourinary: Reports No Symptoms
Musculoskeletal: Reports Muscle Pain and Muscle Weakness
Skin: Reports No Symptoms
Neuro: Reports Tremors (In bilateral upper extremities) and Other (Feels wobbly and unsteady)
Hematologic / Lymphatic: Reports No Symptoms
Allergy / Immunology: Reports No Symptoms
Physical Exam
-
General: Well Developed, Well Nourished and Comfortable (On room air)
HEENT: Normocephalic, Atraumatic, Moist Mucous Membranes, Anicteric and PERRLA
Respiratory: Clear to Auscultation; Negative Wheezes, Rales, Rhonchi or Crackles
Cardiac: Regular Rhythm and S1/S2; Negative Murmur, Rub or Gallop
GI: Soft, Nontender, Nondistended and Normal Bowel Sounds
Genito-urinary: No Costovertebral Tender
Musculoskeletal: No Clubbing, No Cyanosis and No Edema
Neuro: AO x 3, Tremors, DTR's Intact & Symmetrica and Other (Mild ataxia present)
Psych: Calm
--- NOTE | 2023-09-20 13:44 | W.PN.UPDATE ---
Update Note
Progress Note Update
I saw and evaluated the patient. I reviewed the resident�s note and agree with findings and plan as documented in the resident�s note.
Patient comfortable in bed.
Denies having any nausea or vomiting overnight. Remains disoriented at points. Tachycardic and bit hypertensive.
1. Alcohol withdrawal
Alcohol use disorder
-Patient use alcohol to control pain symptoms, drinks vodka/beer. few drinks a day.
-Patient reported history of alcohol withdrawal/history of ICU stay requiring intubation
-Blood alcohol level of 137 at admission
-MSAS score of 4-7 range requiring Ativan PRN overnight
-Monitor on tele floor
-BCARES consult placed
2. Chronic pain and narcotic dependance
-Patient has been getting short prescription for oral oxycodone
-Question of opioid withdrawal at admission although no other supportive signs
-Stop COWS/buprenorphine protocol
-Recommend to follow-up with pain specialist/orthopedic surgeon as main problem is back pain
3. Substance use h/o
-Used to snort cocaine younger age
-Urine drug screen positive for marijuana and benzodiazepine
-Uses recreational marijuana for pain control
4. RA
-Unclear diagnosis, not on any treatment
5. TRAN
-Due to decreased oral intake, got IV fluid hold further IV fluid
-monitor renal function for recovery
Total time spent : 53 mins
--- NOTE | 2023-09-20 14:24 | CM ---
Patient with Hx substance abuse with Dx alcohol withdrawal, Alcohol use disorder, Chronic pain and narcotic dependance. Room air. Receiving IV Ativan prn. Per nurse assessment; ambulatory by self in room.
Met with patient who resides with his uncle Luis in uncle's 2 story house with 2 N[address].
The patient has been independent in ADLs and ambulation.
He volunteers that he has an open Workers Comp case for an injured back, is being treated by an orthopedic Dr, and uses a back brace or SPC at times.
He is currently off work and on disability. 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
Insecurity Assessment: The patient states he has some income coming in from [employer] and does not need resources for food, housing, utilities or transportation.
DME - back brace, SPC
No prior VN.
PCP - Miley Bray
Pharmacy - [facility]
CM Consult: Substance Abuse
The patient states he was seen by [facility] while he was in the ED, was given outpatient resources and he plans on continuing with AA.
Spoke with [facility] Anthony who confirms Tanner from [facility] saw him yesterday and provided outpatient resources.
Plan follow up after seen by PT/OT.
Plan home.
[2023-09-20] MEDS: METAMUCIL, KONSYL 1 PACKET PO (14:31)
[2023-09-20] MEDS: LOVENOX 40 MG SC (17:54)
--- NOTE | 2023-09-20 20:00 | PTCARENOTE ---
Resumed care of pt sitting up in bed AAOx3. Pt slightly restless, with frequent movements, tremors noted. HR 90-100 NSR/ST on the monitor. HR 120's with ambulation. Pt cooperative with all care. Pt able to ambulate independently to bathroom without
difficulty. Pt stable on feet. POX 97% on RA. + bowel, round abd. Chronic back pain. Pt denies any need for pain medication at this time. MSAS assessed 4. No issues to report at this time. Will continue to monitor.
[2023-09-21] VITALS (8 sets, daily range): BP systolic 135–157; BP diastolic 88–103; PULSE 104; O2SAT 97
[2023-09-21] MEDS: ATIVAN 1 MG PO ×4 (00:42→22:36)
[2023-09-21 05:48] LABS: Hematocrit 37.5 % (39.0-52.0); Hemoglobin 13.4 g/dL (13.0-18.0); Mean Corp Hgb Conc. 35.7 g/dL (33.0-37.0); Mean Corpuscular Hgb 34.1 pg (27.0-31.0); Mean Corpuscular Volume 95.4 fL (80.0-94.0); Mean Platelet Volume 9.5 fL (7.4-10.4); Platelet Count 213 10^3/uL (130-400); Red Blood Cell Count 3.93 10^6/uL (4.70-6.10); Red Cell Dist. Width 14.1 % (11.5-14.5); White Blood Cell Count 6.2 10^3/uL (4.8-10.8)
[2023-09-21 06:05] LABS: Blood Urea Nitrogen 17 mg/dl (9-20); Carbon Dioxide 28 mmol/L (22-30); Chloride 103 mmol/L (98-107); Estimated Creatinine Clearance 76 ml/min; Glucose 87 mg/dl (70-99); Potassium 4.8 mmol/L (3.5-5.1); Sodium 136 mmol/L (135-145); eGFR > 60.00
--- NOTE | 2023-09-21 08:12 | W.PN.HOSP.TC ---
Addendum entered and electronically signed by Kvng Logan MD 09/21/23 14:08:
I saw and evaluated the patient. I reviewed the resident�s note and agree with findings and plan as documented in the resident�s note.
Patient remains somewhat confused and disoriented at times. Complains of having mental fogginess. Reported agitation in the night.
Continue to require IV Ativan dosing overnight
1. Alcohol withdrawal
Alcohol use disorder
-Patient use alcohol to control pain symptoms, drinks vodka/beer. few drinks a day.
-Patient reported history of alcohol withdrawal/history of ICU stay requiring intubation
-Blood alcohol level of 137 at admission
-MSAS score of 4-7 range requiring Ativan PRN overnight
-BCARES evaluated patient in ER according to case management.
-Patient symptoms persist continue require frequent Ativan dosing, starting patient on phenobarbital 6.48 mg 3 times daily with taper protocol.
2. Chronic pain and narcotic dependance
-Patient has been getting short prescription for oral oxycodone
-Question of opioid withdrawal at admission although no other supportive signs
-Stop COWS/buprenorphine protocol
-Recommend to follow-up with pain specialist/orthopedic surgeon as main problem is back pain
-Providing non-narcotics/Toradol scheduled Tylenol for pain control.
3. Substance use h/o
-Used to snort cocaine younger age
-Urine drug screen positive for marijuana and benzodiazepine
-Uses recreational marijuana for pain control
4. RA
-Unclear diagnosis, not on any treatment
5. TRAN - resolved
-Due to decreased oral intake, got IV fluid hold further IV fluid
Total time spent : 52 mins
Original Note:
Today's Communication/Plan
-
oral phenobarbital and lorazepam as needed.
On MSAS protocol.
Assess for RASS scoring.
Assessment / Plan
Assessment / Plan
Assessment-
52-year-old male with PMHx significant for chronic back pain, rheumatoid arthritis, degenerative disc disease and alcohol use disorder presented to the hospital with anorexia nausea vomiting sweats, shivering and anxiety.-Diagnosed with alcohol
withdrawal and opiate withdrawal upon admission.
Plan-
Alcohol withdrawal-
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
Drank 6 packs of beers about 48 hours prior to 09/19.
Patient currently on MSAS protocol, most recent score-7,-09/20.
Patient received about 3 mg of Ativan in total as of 09/19.
Patient is extremely anxious and fidgety, sweating upon physical examination. Baseline confusion resolved.
Oral 1 mg Ativan given-09/20. adding phenobarbital oral taper to help with withdrawal symptoms
AO x 3 (person, time, place), physical examination- tremors present.
B CARES consult placed. consult pending. assess for RASS scoring on phenobarbital and lorazepam.
Opioid withdrawal-
PDMP verified, opioid withdrawal less likely as last dose of opioid was about 7 days ago.
Received 1 dose of Subutex in the AM yesterday. COWS protocol stopped on 09/19.
Chronic low back pain -
Patient has severe low back pain secondary to DDD.
Previously seen pain management physician in [place].
Epidural shots 4-5 years ago.
Optimal pain management on outpatient basis to help attain remission and prevent relapse.
Rheumatoid Arthritis -
Diagnosis status unknown.
Hyponatremia upon admission, likely secondary to hypovolemia in the setting of alcohol intake
Resolved on 09/19
TRAN -
KDIGO stage 1,
Secondary to overhydration?
stop hydration
trend renal function
DVT prophylaxis -
On heparin
Code status -
Full code.
Anticipated Discharge: 24 - 48 hours
Subjective/Interval History
-
Date of Service: September 21, 2023
Overnight patient remained stable but early in the morning-he became more fidgety anxious restless was sweating profusely having about 3-4 bowel movements and reports to be passing urine a lot.
Nursing staff confirms that about 7 AM in the morning patient was very fidgety, anxious, throwing things around, sweaty and was worried about 10 different things.
Objective Data
-
Labs:
Laboratory Results
09/21/23
05:01
WBC 6.2
Hgb 13.4
Hct 37.5 L
Plt Count 213 D
Sodium 136
Potassium 4.8
Chloride 103
Carbon Dioxide 28
BUN 17
Creatinine 1.3
Glucose 87
Calcium 9.0
Vital Signs:
Vital Signs
Temp Pulse Resp BP Pulse Ox
98.4 F 112 18 157/97 97
09/21/23 07:25 09/21/23 07:25 09/21/23 07:25 09/21/23 07:25 09/21/23 07:25
I&O
09/20/23 09/21/23 09/22/23
06:59 06:59 06:59
Intake Total 2039
Output Total 200 / 200
Balance -200 / -200 2039
Review of Systems
-
History Source: Patient
Constitutional: Reports Other (Sweating and chills.)
EENT: Reports Runny Nose
Cardiac: Reports Diaphoresis
Abdomen/GI: Reports Other (Increased bowel movements. Constipated yesterday.)
Genitourinary: Reports Frequency
Musculoskeletal: Reports No Symptoms
Skin: Reports No Symptoms
Neuro: Reports No Symptoms
Endocrine: Reports No Symptoms
Hematologic / Lymphatic: Reports No Symptoms
Allergy / Immunology: Reports No Symptoms
Psych: Reports Anxious
Physical Exam
-
General: Well Developed, Well Nourished, Appears in Distress (Mild.), Sweats and Conversant
HEENT: Normocephalic, Moist Mucous Membranes and PERRLA
Respiratory: Clear to Auscultation; Negative Wheezes, Rales or Rhonchi
Cardiac: Regular Rhythm and S1/S2; Negative Murmur, Rub or Gallop
GI: Soft, Nontender, Nondistended and Normal Bowel Sounds
Musculoskeletal: No Clubbing, No Cyanosis and No Edema
Neuro: AO x 3, Tremors and DTR's Intact & Symmetrica
Psych: Anxious; Negative Intact Judgement/Insight
--- NOTE | 2023-09-21 08:13 | VATNOTE ---
Vat rounds. patient c/o right arm pain from an old iv site. no swelling noted but red and painful to touch. warm compress applied for comfort. will monitor closely.
[2023-09-21] MEDS: THIAMINE INJECTION 200 MG IV ×2 (08:16→19:54)
[2023-09-21] MEDS: FOLVITE 1 MG PO (08:16)
[2023-09-21] MEDS: PROTONIX 40 MG PO (08:16)
[2023-09-21] MEDS: METAMUCIL, KONSYL PO (08:17)
[2023-09-21 10:02] LABS: Free T4 0.71 ng/dl (0.78-2.19)
[2023-09-21] MEDS: ATIVAN 1 MG IV (10:05)
[2023-09-21] MEDS: NSS (PRESERVATIVE FREE) 1 ML IV (10:06)
[2023-09-21 10:15] LABS: TSH 1.16 uIU/ml (0.47-4.68)
[2023-09-21 10:52] LABS: Folate 16.3 ng/ml (2.76-20); Vitamin B12 692 pg/ml (239-931)
--- NOTE | 2023-09-21 11:06 | PTOTSP ---
Pt presents to OT at independent level with basic self care, transfers and functional mobility in room and bathroom without AD. No further skilled OT indicated at this time.
--- NOTE | 2023-09-21 11:07 | PTOTSP ---
Patient receptive to participate in session and demonstrates independence with functional mobility, transfers, ambulation and elevations.
Does not demonstrate continued need for skilled therapy at this time and will be discharged. Discussed with patient, following up with his outpatient PT's after epidural injections as appropriate. Verbalized understanding.
If needs change, please re-consult.
--- NOTE | 2023-09-21 12:12 | CM ---
Reviewed the chart notes. Patient ambulated in hallway with PT/OT independently, no device needed. CM continues to be available to patient/family and is monitoring medical plan for needs at discharge.
Plan: Discharge to home when medically stable. No needs anticipated.
[2023-09-21] MEDS: LUMINAL 64.8 MG PO ×3 (12:45→21:44)
[2023-09-21] MEDS: LOVENOX 40 MG SC (17:51)
[2023-09-21] MEDS: MYLICON 80 MG PO (20:31)
[2023-09-21] MEDS: MOTRIN 400 MG PO (22:36)
[2023-09-22 03:20] VITALS: BP 133/91
[2023-09-22 07:20] VITALS: BP 143/106
[2023-09-22] MEDS: METAMUCIL, KONSYL PO (08:00)
[2023-09-22] MEDS: LUMINAL 64.8 MG PO (08:00)
[2023-09-22] MEDS: FOLVITE 1 MG PO (08:00)
[2023-09-22] MEDS: PROTONIX 40 MG PO (08:00)
[2023-09-22] MEDS: THIAMINE INJECTION 200 MG IV (08:00)
--- NOTE | 2023-09-22 09:54 | W.PN.HOSP.TC ---
Addendum entered and electronically signed by Kvng Logan MD 09/22/23 12:52:
I saw and evaluated the patient. I reviewed the resident�s note and agree with findings and plan as documented in the resident�s note.
Patient comfortable in bed.
Denies having any nausea or vomiting overnight. Remains disoriented at points. Tachycardic and bit hypertensive.
1. Alcohol withdrawal - Improved
Alcohol use disorder
-Patient use alcohol to control pain symptoms, drinks vodka/beer. few drinks a day.
-Patient reported history of alcohol withdrawal/history of ICU stay requiring intubation
-Blood alcohol level of 137 at admission
-MSAS score of 4-7 range requiring Ativan PRN
-Symptoms are significantly controlled and started on phenobarb taper yesterday. Symptoms much improved today. Will discharge patient on phenobarbital taper for next 3 days. Patient advised against drinking while on phenobarb.
2. Chronic pain and narcotic dependance
-Patient has been getting short prescription for oral oxycodone
-Question of opioid withdrawal at admission although no other supportive signs
-Recommend to follow-up with pain specialist/orthopedic surgeon as main problem is back pain
3. Substance use h/o
-Used to snort cocaine younger age
-Urine drug screen positive for marijuana and benzodiazepine
-Uses recreational marijuana for pain control
4. RA
-Unclear diagnosis, not on any treatment
5. TRAN - resolved
-Due to decreased oral intake, got IV fluid hold further IV fluid
-monitor renal function for recovery
Original Note:
Today's Communication/Plan
-
Phenobarbital taper
Discharge patient home with [facility] resources.
Assessment / Plan
Assessment / Plan
Assessment-
52-year-old male with PMHx significant for chronic back pain, rheumatoid arthritis, degenerative disc disease and alcohol use disorder presented to the hospital with anorexia nausea vomiting sweats, shivering and anxiety.-Diagnosed with alcohol
withdrawal and opiate withdrawal upon admission.
Plan-
Alcohol withdrawal-
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
Drank 6 packs of beers about 48 hours prior to 09/19.
Patient currently on MSAS protocol, most recent score-7,-09/20.
Patient received about 3 mg of Ativan in total as of 09/19.
Patient is extremely anxious and fidgety, sweating upon physical examination. Baseline confusion resolved. On 09/20.
Calm appearing, denies sweating, nausea, anxiety, agitation.
Oral 1 mg Ativan given-09/20. Received 3 doses of phenobarbital at 62.4 in the taper out of 6 doses.
AO x 3 (person, time, place), physical examination- tremors present.
B CARES consult done. Discharged home on phenobarbital taper with instructions on not to combine phenobarbital and alcohol.
Opioid withdrawal-
PDMP verified, opioid withdrawal less likely as last dose of opioid was about 7 days ago.
Received 1 dose of Subutex in the AM yesterday. COWS protocol stopped on 09/19.
Chronic low back pain -
Patient has severe low back pain secondary to DDD.
Previously seen pain management physician in [place].
Epidural shots 4-5 years ago.
Optimal pain management on outpatient basis to help attain remission and prevent relapse.
Rheumatoid Arthritis -
Diagnosis status unknown.
Hyponatremia upon admission, likely secondary to hypovolemia in the setting of alcohol intake
Resolved on 09/19
TRAN -
KDIGO stage 1, Secondary to overhydration? On 09/19.
Renal function improved today to 1.2-09/21 from 1.5 on 09/19.
DVT prophylaxis -
On heparin
Code status -
Full code.
Anticipated Discharge: Today
Subjective/Interval History
-
Date of Service: September 22, 2023
patient reports to be feeling better.
Objective Data
-
Labs:
Laboratory Results
09/22/23
09:31
WBC Pending
Hgb Pending
Hct Pending
Plt Count Pending
Sodium Pending
Potassium Pending
Chloride Pending
Carbon Dioxide Pending
BUN Pending
Creatinine Pending
Glucose Pending
Calcium Pending
Vital Signs:
Vital Signs
Temp Pulse Resp BP Pulse Ox
98.6 F 105 16 143/106 99
09/22/23 07:20 09/22/23 07:20 09/22/23 07:20 09/22/23 07:20 09/22/23 07:20
I&O
09/21/23 09/22/23 09/23/23
06:59 06:59 06:59
Intake Total 2039 1680 / 168
Balance 2039 / 1679
Review of Systems
-
History Source: Patient
Constitutional: Reports No Symptoms
EENT: Reports No Symptoms Reported
Respiratory: Reports No Symptoms
Cardiac: Reports No Symptoms
Abdomen/GI: Reports No Symptoms
Genitourinary: Reports No Symptoms
Musculoskeletal: Reports No Symptoms
Neuro: Reports No Symptoms
Hematologic / Lymphatic: Reports No Symptoms
Physical Exam
-
General: Comfortable (On room air)
HEENT: Normocephalic, Atraumatic and Moist Mucous Membranes
Respiratory: Clear to Auscultation
Cardiac: Regular Rhythm and S1/S2; Negative Murmur or Rub
Musculoskeletal: No Clubbing, No Cyanosis and No Edema
Neuro: AO x 3, Tremors (Improved from yesterday) and DTR's Intact & Symmetrica
Psych: Calm
--- NOTE | 2023-09-22 09:55 | W.DCSUMMARY ---
Discharge Summary
Discharge Data
Date of Admission: 09/19/23
Date of Discharge: 09/22/23
-
Pending Results: No
Hospital Course
Admission diagnoses-alcohol withdrawal
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
Degenerative disc disease
Rheumatoid arthritis
Chronic low back pain
Alcohol use disorder
Substance use disorder (opioids, kratom).
Hospital course -
54-year-old man with above-mentioned PMHx presents to the [facility] ER after consuming 6 packs of beer, consuming microdoses of marijuana Gummies with symptoms pertinent to alcohol withdrawal on 09/19/2023 and was admitted to inpatient for
alcohol withdrawal treatment. His last dose of opioids was about 5 days ago. Upon initial arrival there is some suspicion for a combination of alcohol withdrawal and opioid withdrawal. Patient was initiated on MSAS protocol and COWS protocol with
IV lorazepam/oral lorazepam and as needed phenobarbital, and Subutex respectively. During his hospital course on day 1 he received about 3 mg of Ativan and 1 dose of Subutex, with significant improvement in his nausea abdominal pain appetite
vomitings and anxiety. On day 2 of hospital course, his urine toxicology was positive only for marijuana and benzodiazepines, hence COWS protocol with Subutex was stopped on the patient after verifying PDMP for the amount of his prescription
opioids. In the morning patient remained for fidgety, anxious, complained of excessive salivation, tremors and patient was started on oral phenobarbital taper with Ativan as needed. On day 3-09/22/2023 his symptoms significantly improved with 3
doses out of 6 doses of prescribed starting dose of phenobarbital taper (at 64.8mg). Patient was given phenobarbital taper for 3 more days and is advised to not consume alcohol while on phenobarbital as it can cause sedation and was discharged home.
For his alcohol use disorder he was also simultaneously treated with thiamine folate PPI.
His chronic low back pain, degenerative disc disease are treated with ketorolac as needed (did not get any doses).
[facility] with [facility] use [facility].
Discharge Plan
-
Patient Disposition: Home (Routine Discharge)
Discharge Diagnosis/Procedures: Alcohol use disorder, alcohol withdrawal, chronic back pain
Condition: Fair
Diet: Regular
Activity: As tolerated
Driving Restrictions: As prior to admission
Bathing Restrictions: OK to Shower
Activity Restrictions/Additional Instructions:
please call Dr galloway's office for help with pain managment.
Referrals:
Miley Bray CRNP [Family Provider] - in one week
Jorden Galloway MD [Non-Admitting Privileges] - in three to four weeks
Prescriptions:
New
pantoprazole 40 mg tablet,delayed release (DR/EC)
40 mg PO DAILY Qty: 30 2RF
phenobarbital 32.4 mg tablet
See Rx Instructions .ROUTE .COMPLEX Qty: 12 0RF
Rx Instructions:
Take 2 Tablets three times daily x1 day THEN
Take 1 Tablet three times daily x2 day.
Continued
ibuprofen 200 mg Tablet
400 mg PO Q8HPRN PRN (Reason: mild pain)
Discharge Orders:
Discharge Patient (As Directed); Ordered 09/22/23
Ordered By: Kvng Logan
Discharge Date and Time
Discharge Date/Time: 09/22/23 11:51
Print Language: GREENLANDIC
[2023-09-22 10:13] LABS: Hematocrit 37.8 % (39.0-52.0); Hemoglobin 13.8 g/dL (13.0-18.0); Mean Corp Hgb Conc. 36.5 g/dL (33.0-37.0); Mean Corpuscular Hgb 33.7 pg (27.0-31.0); Mean Corpuscular Volume 92.4 fL (80.0-94.0); Mean Platelet Volume 9.6 fL (7.4-10.4); Platelet Count 232 10^3/uL (130-400); Red Blood Cell Count 4.09 10^6/uL (4.70-6.10); Red Cell Dist. Width 14.1 % (11.5-14.5)
--- NOTE | 2023-09-22 10:46 | CM ---
Reviewed the chart notes and spoke with the patient at the bedside. The patient is for discharge today. No needs. Patient will be taking an Uber/Lyfte home today. Patient has resources provided by [facility]. Patient has a [employer]
casework specialist he is working with. CM continues to be available to patient/family and is monitoring medical plan for needs at discharge.
Plan: Discharge to home today. No needs identified.
[2023-09-22 11:05] VITALS: BP 167/101
[2023-09-22 11:09] VITALS: BP 167/101
[2023-09-22 11:15] LABS: Blood Urea Nitrogen 22 mg/dl (9-20); Carbon Dioxide 25 mmol/L (22-30); Chloride 104 mmol/L (98-107); Estimated Creatinine Clearance 83 ml/min; Glucose 85 mg/dl (70-99); Potassium 4.3 mmol/L (3.5-5.1); Sodium 135 mmol/L (135-145); eGFR > 60.00
== END 2023-09-22 11:51 | disposition home or self-care (01) | DRG 897 ==
LOC: 2 NORTH 22:06
PROVIDERS: Physician Assistant Medical; Student in an Organized Health Care Education/Training Program; ADMITTING PHYSICIAN Hospitalist; ATTENDING PHYSICIAN Hospitalist; EMERGENCY PHYSICIAN Emergency Medicine; FAMILY PHYSICIAN Nurse Practitioner Family
DX: F10.939 Alcohol use, unspecified with withdrawal, unspecified (principal); F11.20 Opioid dependence, uncomplicated; M06.9 Rheumatoid arthritis, unspecified; G89.29 Other chronic pain; M47.816 Spondylosis without myelopathy or radiculopathy, lumbar region
CPT/HCPCS: 80048; 80053; 80306; 80307; 82077; 82248; 82607; 82746; 82977; 83735; 84100; 84439; 84443; 85025; 85027; 85610; 87070; 93005; 96374; 96375; 97116; 97162; 97165; 99285

== ENCOUNTER → 2023-12-22 08:39 | Outpatient (REF) | payer OTHER, SELFPAY | LOC: EMG 08:39 | PROVIDERS: ATTENDING PHYSICIAN Orthopaedic Surgery; FAMILY PHYSICIAN Nurse Practitioner Family | DX: M51.9 Unspecified thoracic, thoracolumbar and lumbosacral intervertebral disc disorder (principal) | CPT/HCPCS: 95886; 95910 ==

== ENCOUNTER 2023-12-28 06:29 | Day surgery (SDC) | payer OTHER, SELFPAY ==
[2023-12-02 08:52] LABS: Hematocrit 41.5 % (39.0-52.0); Hemoglobin 14.6 g/dL (13.0-18.0); Mean Corp Hgb Conc. 35.2 g/dL (33.0-37.0); Mean Corpuscular Hgb 32.1 pg (27.0-31.0); Mean Corpuscular Volume 91.2 fL (80.0-94.0); Platelet Count 272 10^3/uL (130-400); Red Blood Cell Count 4.55 10^6/uL (4.70-6.10); Red Cell Dist. Width 11.9 % (11.5-14.5); White Blood Cell Count 5.3 10^3/uL (4.8-10.8)
[2023-12-02 09:25] LABS: Blood Urea Nitrogen 24 mg/dl (9-20); Carbon Dioxide 26 mmol/L (22-30); Chloride 104 mmol/L (98-107); Glucose 84 mg/dl (70-99); Potassium 4.7 mmol/L (3.5-5.1); Sodium 141 mmol/L (135-145); eGFR > 60.00
[2023-12-02 09:28] LABS: Alcohol None Detected
[2023-12-02 09:32] VITALS: BMI 26.4
--- NOTE | 2023-12-22 14:03 | PTCARENOTE ---
Patient contacted surgeons office regarding preop management of Suboxone-I instructed pt to contact prescriber for instructions as indicated by the Preoperative Medication Management Recommendations. Verified these instructions with Dr. Owusu-no
additional interventions required. Left message on patients phone verifying instructions that patient should contact prescriber regarding pre-op management of Suboxone.
[2023-12-28] VITALS (9 sets, daily range): BP systolic 118–147; BP diastolic 61–98; BMI 27.4
[2023-12-28] MEDS: TYLENOL 1000 MG PO (06:27)
[2023-12-28] MEDS: SUBLIMAZE 50 MCG IV ×2 (09:37→09:51)
[2023-12-28] MEDS: ROXICODONE 5 MG PO (10:20)
== END 2023-12-28 11:09 | disposition home or self-care (01) ==
LOC: SDS 06:29
PROVIDERS: ATTENDING PHYSICIAN Surgery; FAMILY PHYSICIAN Family Medicine
DX: K40.20 Bilateral inguinal hernia, without obstruction or gangrene, not specified as recurrent (principal)
CPT/HCPCS: 49650; 36415; 80048; 82077; 85027; 93005; C1781

== ENCOUNTER → 2024-03-13 11:12 | Outpatient (REF) | payer OTHER, SELFPAY | LOC: RAD 11:12 | PROVIDERS: ATTENDING PHYSICIAN Surgery; FAMILY PHYSICIAN Family Medicine | DX: R10.31 Right lower quadrant pain (principal) | CPT/HCPCS: 74177; Q9967 ==

== ENCOUNTER → 2024-05-24 09:52 | Outpatient (REF) | payer OTHER, SELFPAY | LOC: RAD 09:52 | PROVIDERS: ATTENDING PHYSICIAN Physician Assistant | DX: M06.9 Rheumatoid arthritis, unspecified (principal) | CPT/HCPCS: 73130 ==

== ENCOUNTER → 2024-07-12 11:13 | Outpatient (REF) | payer OTHER, SELFPAY | LOC: RAD 11:13 | PROVIDERS: ATTENDING PHYSICIAN Physician Assistant; FAMILY PHYSICIAN Family Medicine | DX: S60.551A Superficial foreign body of right hand, initial encounter (principal) | CPT/HCPCS: 73130 ==